=== PATIENT | female | born 1955 | race Caucasian/White ===

== ENCOUNTER 2020-05-04 02:11 | Outpatient (CLI) | payer BC, SELFPAY ==
[2020-05-04 18:23] LABS: SARS-CoV-2 RNA PCR Negative
== END 2020-05-04 02:12 | disposition home or self-care (01) ==
LOC: ANHCOVIDDT 02:12
PROVIDERS: PCP Nurse Practitioner; Visit Provider Internal Medicine Gastroenterology
DX: Z01.812 Encounter for preprocedural laboratory examination (principal); Z20.828 Contact with and (suspected) exposure to other viral communicable diseases
CPT/HCPCS: 87635; C9803; U0003

== ENCOUNTER 2020-05-06 01:09 | Day surgery (SDC) | payer BC, SELFPAY ==
[2020-04-27 13:21] VITALS: BMI 38.2
[2020-05-06 06:56] VITALS: BP 130/82; PULSE 116; RESP 20; TEMP 36.1; O2SAT 98
[2020-05-06] MEDS: LACTATED RINGERS 1,000 ML 150 ML IV CONT (07:16)
[2020-05-06] MEDS: GENTAMICIN 80MG/SOD CHL 50 ML 80 MG/50 ML BAG 100 MG IVPB (07:23)
--- NOTE | 2020-05-06 07:33 | PM.IMHP ---
H&P: HPI History of Present Illness Date/Time: 05/06/20 07:33 Chief complaint: Neoplasm Screening Narrative: Reason for visit colonoscopy. This very pleasant lady who was seen at the request of the primary physician. The patient was exam. Impression: Screening colonoscopy. HTN. HLD. Basal cell cancer. Obesity. Recommendation: Colonoscopy. History: This very pleasant lady's being evaluated for colon cancer and polyp screening. Her GI review systems negative. This is her 1st colonoscopy. Physical examination: General: very pleasant patient in no acute distress. HEENT: Head was normocephalic sclerae is clear mouth without masses neck was supple. Heart: Rate rhythm regular without S3 or S4. Lungs: CTA. Abdomen: Soft with no guarding or rigidity. Bowel sounds were active. Neurologic: Cranial nerves 2 through 12 intact. No focal defects. No clonus. Musculoskeletal system: Revealed no joint tenderness or swelling no muscle atrophy. Extremities: Reveal no significant edema. Skin: Warm and dry with normal turgor. Mental status: intact. Patient is alert and oriented. Review of Systems Review of Systems: All systems reviewed & are unremarkable except as noted in HPI and below PMFSH Past Medical History Medical History (Updated 05/06/20 @ 07:33 by Osmany Harper DO) HLD (hyperlipidemia) HTN (hypertension) Obesity Skin cancer Meds Home Medications and Allergies Home Medications Medication Instructions Recorded Confirmed Type cholecalciferol (vitamin D3) 125 mcg PO DAILY 04/27/20 04/27/20 History [Vitamin D3] ivrwhxqj-lni-gnki-FA-lutein 1 tablet PO DAILY 04/27/20 04/27/20 History [Centrum Silver Women] rosuvastatin 10 mg PO DAILY 04/27/20 04/27/20 History telmisartan-hydrochlorothiazid 1 tablet PO DAILY 04/27/20 04/27/20 History Allergies Allergy/AdvReac Type Severity Reaction Status Date / Time Latex, Natural Rubber Allergy Severe Blister Verified 05/06/20 06:55 Penicillins Allergy Unknown Hives Verified 05/06/20 06:55 Vital Signs Vital Signs - 24 hr 05/06/20 06:56 Temperature 36.1 C L Pulse Rate 116 H Respiratory Rate 20 Blood Pressure 130/82 Pulse Oximetry 98
--- NOTE | 2020-05-06 07:46 | WPDANESEPPF ---
Anes - Initial Pre Proc Eval Procedure: Operation Date: 05/06/20 08:00 Proposed Procedures p Screening Colonoscopy - Osmany Harper DO Date/Time: 05/06/20 07:46 Surgeon: Osmany Harper DO Pre Op Diagnosis: Neoplasm Screening Patient Data Age: 64 Gender: F Height: 5 ft 3 in Weight: 98 kg Last Vital Signs Temp 96.9 F L 05/06/20 06:56 Pulse 116 H 05/06/20 06:56 Resp 20 05/06/20 06:56 BP 130/82 05/06/20 06:56 Pulse Ox 98 05/06/20 06:56 Allergies Allergy/AdvReac Type Severity Reaction Status Date / Time Latex, Natural Rubber Allergy Severe Blister Verified 05/06/20 06:55 Penicillins Allergy Unknown Hives Verified 05/06/20 06:55 Home Medications Medication Instructions Recorded Confirmed Type cholecalciferol (vitamin D3) 125 mcg PO DAILY 04/27/20 04/27/20 History [Vitamin D3] rfnvkdxu-imu-qqpc-FA-lutein 1 tablet PO DAILY 04/27/20 04/27/20 History [Centrum Silver Women] rosuvastatin 10 mg PO DAILY 04/27/20 04/27/20 History telmisartan-hydrochlorothiazid 1 tablet PO DAILY 04/27/20 04/27/20 History Patient hx anesthesia problems: none Family hx anesthesia problems: none PMFSH Past Medical History Medical History (Updated 05/06/20 @ 07:33 by Osmany Harper DO) HLD (hyperlipidemia) HTN (hypertension) Obesity Skin cancer Anes - Eval Final PreProcedure Day of Procedure 05/06/20 07:46 Patient weight: obese Heart: regular rate and rhythm Lungs: clear to auscultation Airway: Mallampati scale class II Neurological: alert and oriented Last oral intake: >/= 8 hours ASA classification: III Emergent: no Anesthetic plan: proceed Anesthesia type and monitoring: general GIVS and standard monitoring Informed Consent: The patient's anesthetic plan and its attendant risks and benefits were discussed with the patient/family/POA. Questions were solicited and answers provided to the satisfaction of the patient/family/POA.
[2020-05-06 08:24] VITALS: BP 111/63; PULSE 74; RESP 22; O2SAT 99
[2020-05-06 08:34] VITALS: BP 120/68; PULSE 72; RESP 23; O2SAT 96
[2020-05-06 08:44] VITALS: BP 133/66; PULSE 69; RESP 19; O2SAT 98
[2020-05-06 08:54] VITALS: BP 137/70; PULSE 65; RESP 18; O2SAT 98
== END 2020-05-06 09:56 | disposition home or self-care (01) ==
PROVIDERS: PCP Nurse Practitioner; Visit Provider Internal Medicine Gastroenterology
PROC: 0DJD8ZZ Inspection of Lower Intestinal Tract, Via Natural or Artificial Opening Endoscopic (ICD-10-PCS; CPT 45378; principal; 2020-05-06 08:00)
DX: Z12.11 Encounter for screening for malignant neoplasm of colon (principal); D12.0 Benign neoplasm of cecum; K64.8 Other hemorrhoids; I10 Essential (primary) hypertension; E78.5 Hyperlipidemia, unspecified; Z85.828 Personal history of other malignant neoplasm of skin; Z79.899 Other long term (current) drug therapy
CPT/HCPCS: 45380; 88305; J1580; J2704; J3370; J7120